=== PATIENT | male | born 1975 | race Caucasian/White ===

== ENCOUNTER 2023-04-27 19:40 | Inpatient (IN) | payer MEDICARE, OTHER ==
[~2023-04-27] VITALS: Ht 180.3 cm; Wt 99.8 kg
[2023-04-27 22:42] VITALS: BP 136/89; TEMP 100.6; O2SAT 95
[2023-04-28] VITALS: BP 138/89; TEMP 100.6; O2SAT 95
[2023-04-28] MEDS ORDERED: TEMAZEPAM 15 MG CAPSULE PO PRN
[2023-04-28] MEDS ORDERED: ACETAMINOPHEN 325 MG TABLET PO PRN
[2023-04-28] MEDS ORDERED: ONDANSETRON HCL/PF 4 MG/2 ML VIAL IV PRN
[2023-04-28] MEDS: HYDROCODONE/APAP 5/325MG TABLET PO PRN ×3 (00:05→11:15)
[2023-04-28 04:00] VITALS: BP 119/75; TEMP 99; O2SAT 97
[2023-04-28 06:01] LABS: BASOPHILS % (AUTO) 0.5 % (0.0-2.0); EOSINOPHILS # (AUTO) 0.1 K/uL (0.0-0.7); EOSINOPHILS % (AUTO) 2.1 % (0.0-6.0); HEMATOCRIT 40 % (39-51); HEMOGLOBIN 13.3 g/dL (13.5-17.5); LYMPHOCYTES # (AUTO) 1.1 K/uL (0.8-4.8); LYMPHOCYTES % (AUTO) 24.6 % (20.0-44.0); MEAN CORPUSCULAR HEMOGLOBIN 28 PG (26.0-33.0); MEAN CORPUSCULAR HGB CONC 33 g/dl (31.0-36.0); MEAN CORPUSCULAR VOLUME 84 fL (80-96); MONOCYTES # (AUTO) 0.6 K/uL (0.1-1.30); MONOCYTES % (AUTO) 12.7 % (2.0-12.0); NEUTROPHILS # (AUTO) 2.7 K/uL (1.8-8.9); NEUTROPHILS % (AUTO) 60.1 % (43.0-81.0); PLATELET COUNT (AUTO) 143 K/uL (150-450); RED BLOOD CELL COUNT(AUTO) 4.77 MIL/uL (4.5-6.0); RED CELL DISTRIBUTION WIDTH 13.9 % (11.5-15.0); WHITE BLOOD COUNT (AUTO) 4.4 K/uL (4.3-11.0)
[2023-04-28 06:27] LABS: BILIRUBIN,TOTAL 0.5 mg/dL (0.2-1.0); CALCIUM, SERUM 8.3 mg/dL (8.5-10.1); CREATININE 1.2 mg/dL (0.6-1.3); TOTAL PROTEIN, SERUM 6.7 g/dL (6.4-8.2)
[2023-04-28 08:00] VITALS: BP 123/70; TEMP 98.3; O2SAT 97
[2023-04-28] MEDS ORDERED: AZITHROMYCIN 500 MG in IV D5W 250 ML IV SCH (09:00)
[2023-04-28] MEDS: CEFTRIAXONE 1 G in IV D5W 50 ML IV SCH (09:22)
[2023-04-28] MEDS: AZITHROMYCIN 250 MG TABLET PO SCH (09:23)
[2023-04-28] MEDS ORDERED: IV NS 0.9% 250 ML IV PRN (10:00)
[2023-04-28 12:00] VITALS: BP 146/92; TEMP 98.3; O2SAT 96
[2023-04-28] MEDS: ENOXAPARIN SODIUM 40 MG/0.4 ML DISP.SYRIN SQ SCH (14:34)
[2023-04-28 16:00] VITALS: BP 129/82; TEMP 98.1; O2SAT 97
[2023-04-28] MEDS: IBUPROFEN 400 MG TABLET PO PRN (19:22)
[2023-04-28 20:00] VITALS: BP 134/82; TEMP 99.3; O2SAT 97
[2023-04-28] MEDS ORDERED: GUAIFENESIN 300 MG/15 ML UDC PO PRN (21:30)
[2023-04-29] VITALS: BP 127/77; TEMP 97.9; O2SAT 96
[2023-04-29 04:00] VITALS: BP 122/74; TEMP 98.6; O2SAT 96
[2023-04-29 07:02] LABS: BASOPHILS % (AUTO) 0.7 % (0.0-2.0); EOSINOPHILS # (AUTO) 0.1 K/uL (0.0-0.7); HEMATOCRIT 44 % (39-51); HEMOGLOBIN 14.5 g/dL (13.5-17.5); LYMPHOCYTES # (AUTO) 1.3 K/uL (0.8-4.8); LYMPHOCYTES % (AUTO) 27.7 % (20.0-44.0); MEAN CORPUSCULAR HEMOGLOBIN 28 PG (26.0-33.0); MEAN CORPUSCULAR HGB CONC 33 g/dl (31.0-36.0); MEAN CORPUSCULAR VOLUME 84 fL (80-96); MONOCYTES # (AUTO) 0.7 K/uL (0.1-1.30); MONOCYTES % (AUTO) 14.8 % (2.0-12.0); NEUTROPHILS # (AUTO) 2.6 K/uL (1.8-8.9); NEUTROPHILS % (AUTO) 53.8 % (43.0-81.0); PLATELET COUNT (AUTO) 155 K/uL (150-450); RED CELL DISTRIBUTION WIDTH 13.7 % (11.5-15.0); WHITE BLOOD COUNT (AUTO) 4.8 K/uL (4.3-11.0)
[2023-04-29 07:32] LABS: CALCIUM, SERUM 8.4 mg/dL (8.5-10.1); CREATININE 1.1 mg/dL (0.6-1.3); MAGNESIUM 2.1 mg/dL (1.8-2.4); PHOSPHORUS 4.5 mg/dL (2.5-4.9)
[2023-04-29] MEDS: IBUPROFEN 400 MG TABLET PO PRN (07:54)
[2023-04-29 08:00] VITALS: BP 143/84; TEMP 99; O2SAT 96
[2023-04-29] MEDS: CEFTRIAXONE 1 G in IV D5W 50 ML IV SCH (09:01)
[2023-04-29] MEDS: AZITHROMYCIN 250 MG TABLET PO SCH (09:01)
[2023-04-29] MEDS: ENOXAPARIN SODIUM 40 MG/0.4 ML DISP.SYRIN SQ SCH (09:02)
[2023-04-29 12:00] VITALS: BP 158/87; TEMP 98.4; O2SAT 98
[2023-04-29 16:00] VITALS: BP 138/88; TEMP 97.9; O2SAT 98
[2023-04-29 20:00] VITALS: BP 134/84; TEMP 99.1; O2SAT 98
[2023-04-30] VITALS: BP 124/83; TEMP 99.5; O2SAT 98
[2023-04-30] MEDS: IBUPROFEN 400 MG TABLET PO PRN (01:39)
[2023-04-30 04:00] VITALS: BP 118/78; TEMP 98.2; O2SAT 98
[2023-04-30 08:00] VITALS: BP 141/90; TEMP 98.6; O2SAT 98
[2023-04-30] MEDS: ENOXAPARIN SODIUM 40 MG/0.4 ML DISP.SYRIN SQ SCH (09:52)
[2023-04-30] MEDS: AZITHROMYCIN 250 MG TABLET PO SCH (09:53)
[2023-04-30] MEDS: CEFTRIAXONE 1 G in IV D5W 50 ML IV SCH (09:53)
[2023-04-30 10:00] VITALS: BP 141/90; TEMP 98.6; O2SAT 98
[2023-04-30] MEDS ORDERED: GUAI100S11 PO (11:56)
[2023-04-30] MEDS ORDERED: AZIT250T PO (11:56)
[2023-04-30 12:00] VITALS: BP 141/90; TEMP 98.6; O2SAT 98
== END 2023-04-30 13:45 | disposition home or self-care (01) | DRG 195 ==
LOC: TELE1 19:40 → MEDSG1 04-29 16:36
PROVIDERS: ADMIT Nurse Practitioner Acute Care; ATTEND Nurse Practitioner Acute Care
DX: J15.9 Unspecified bacterial pneumonia (principal); E66.9 Obesity, unspecified; Z87.828 Personal history of other (healed) physical injury and trauma; Z68.30 Body mass index [BMI] 30.0-30.9, adult; F17.200 Nicotine dependence, unspecified, uncomplicated; G47.33 Obstructive sleep apnea (adult) (pediatric); G89.29 Other chronic pain; Z98.890 Other specified postprocedural states
CPT/HCPCS: 36415; 70450-TC; 71045-TC; 80048-TC; 80053-TC; 83735-TC; 84100-TC; 85025-TC; 87081-TC; A4223; G0378; J0456; J0696; J1650; J2405; J7050; J7060

== ENCOUNTER 2024-01-18 12:46 | Inpatient (IN) | payer MEDICARE, OTHER ==
[~2024-01-18] VITALS: Ht 181.6 cm; Wt 100.2 kg
[~2024-01-18 12:46] MED LIST: AZIT250T PO; GUAI100S11 PO
[2024-01-18 13:40] LABS: BASOPHILS % (AUTO) 0.3 % (0.0-2.0); EOSINOPHILS # (AUTO) 0.1 K/uL (0.0-0.7); EOSINOPHILS % (AUTO) 0.8 % (0.0-6.0); HEMATOCRIT 43 % (39-51); HEMOGLOBIN 14.8 g/dL (13.5-17.5); LYMPHOCYTES # (AUTO) 1.4 K/uL (0.8-4.8); LYMPHOCYTES % (AUTO) 14.2 % (20.0-44.0); MEAN CORPUSCULAR HEMOGLOBIN 29 PG (26.0-33.0); MEAN CORPUSCULAR HGB CONC 34 g/dl (31.0-36.0); MEAN CORPUSCULAR VOLUME 85 fL (80-96); MONOCYTES # (AUTO) 0.9 K/uL (0.1-1.30); MONOCYTES % (AUTO) 9.3 % (2.0-12.0); NEUTROPHILS # (AUTO) 7.3 K/uL (1.8-8.9); NEUTROPHILS % (AUTO) 75.4 % (43.0-81.0); PLATELET COUNT (AUTO) 136 K/uL (150-450); RED BLOOD CELL COUNT(AUTO) 5.12 MIL/uL (4.5-6.0); RED CELL DISTRIBUTION WIDTH 13.8 % (11.5-15.0); WHITE BLOOD COUNT (AUTO) 9.7 K/uL (4.3-11.0)
[2024-01-18 13:50] LABS: CALCIUM, SERUM 9.3 mg/dL (8.5-10.1); CARBON DIOXIDE 27 mmol/L (21-32); CHLORIDE 99 mmol/L (98-107); CREATININE 1.1 mg/dL (0.6-1.3); GLUCOSE 112 mg/dL (74-106); SODIUM SERUM 138 mmol/L (136-145); UREA NITROGEN, BLOOD 11 mg/dL (7-18)
[2024-01-18 14:00] LABS: NT-PRO BNP 12 pg/mL (0-125)
[2024-01-18] MEDS ORDERED: ACET-2030 PO (14:32)
[2024-01-18] MEDS ORDERED: ENOXAPARIN SODIUM 100 MG/ML DISP.SYRIN SQ ONE (14:49)
[2024-01-18] MEDS: ENOXAPARIN SODIUM 100 MG/ML DISP.SYRIN SQ ONE (14:50)
[2024-01-18] MEDS: ACETAMINOPHEN 325 MG TABLET PO STA (15:46)
[2024-01-18] MEDS ORDERED: ACETAMINOPHEN ES 500 MG TABLET ONE (15:46)
[2024-01-18] MEDS ORDERED: Z GUARD REMEDY 4 OZ OINT TP PRN (16:00)
[2024-01-18] MEDS ORDERED: MAGNESIUM HYDROXIDE 30 ML UDC PO PRN (16:00)
[2024-01-18 18:00] VITALS: BP 135/91; TEMP 99.5; O2SAT 99
[2024-01-18] MEDS: HYDROCODONE/APAP 5/325MG TABLET PO PRN (19:04)
[2024-01-18] MEDS ORDERED: ACETAMINOPHEN ES 500 MG TABLET PO PRN (19:30)
[2024-01-18 20:00] VITALS: BP 124/86; TEMP 99.5; O2SAT 98
[2024-01-19] VITALS: BP 125/82; TEMP 98.3; O2SAT 98
[2024-01-19 00:20] LABS: INR 1.14 (0.91-1.10)
[2024-01-19] MEDS: ENOXAPARIN SODIUM 100 MG/ML DISP.SYRIN SQ SCH (03:21)
[2024-01-19 04:00] VITALS: BP 122/72; TEMP 98.3; O2SAT 98
[2024-01-19] MEDS: ACETAMINOPHEN 325 MG TABLET PO PRN (05:07)
[2024-01-19 07:26] LABS: BASOPHILS % (AUTO) 0.1 % (0.0-2.0); EOSINOPHILS % (AUTO) 0.1 % (0.0-6.0); HEMATOCRIT 42 % (39-51); HEMOGLOBIN 14.1 g/dL (13.5-17.5); MEAN CORPUSCULAR HEMOGLOBIN 29 PG (26.0-33.0); MEAN CORPUSCULAR HGB CONC 34 g/dl (31.0-36.0); MEAN CORPUSCULAR VOLUME 85 fL (80-96); MONOCYTES # (AUTO) 1.2 K/uL (0.1-1.30); MONOCYTES % (AUTO) 9.9 % (2.0-12.0); NEUTROPHILS # (AUTO) 9.5 K/uL (1.8-8.9); NEUTROPHILS % (AUTO) 80.9 % (43.0-81.0); PLATELET COUNT (AUTO) 132 K/uL (150-450); RED CELL DISTRIBUTION WIDTH 13.6 % (11.5-15.0); WHITE BLOOD COUNT (AUTO) 11.7 K/uL (4.3-11.0)
[2024-01-19] MEDS: PANTOPRAZOLE 40 MG TABLET.DR PO SCH (07:35)
[2024-01-19 07:52] LABS: CALCIUM, SERUM 9.2 mg/dL (8.5-10.1); CREATININE 1.1 mg/dL (0.6-1.3); PHOSPHORUS 3.4 mg/dL (2.5-4.9); POTASSIUM 4.7 mmol/L (3.5-5.1)
[2024-01-19 08:00] VITALS: BP 131/85; TEMP 98.8; O2SAT 98
[2024-01-19 12:00] VITALS: BP 135/86; TEMP 100; O2SAT 100
[2024-01-19 14:19] LABS: INR 1.2 (0.91-1.10); PROTHROMBIN TIME 12.6 SECS (9.2-11.1)
[2024-01-19] MEDS: ONDANSETRON HCL/PF 4 MG/2 ML VIAL IVP PRN (14:25)
[2024-01-19] MEDS: HEPARIN INFUSION/D5W 500 ML IV PRN (14:56)
[2024-01-19 16:00] VITALS: BP 132/92; TEMP 99.7; O2SAT 97
[2024-01-19 20:00] VITALS: BP 116/72; TEMP 99.3; O2SAT 97
[2024-01-19] MEDS ORDERED: CEFEPIME 1 GM VIAL ONE (21:47)
[2024-01-19 22:22] LABS: APPEARANCE,URINE CLEAR (CLEAR); BILIRUBIN,URINE NEGATIVE (NEGATIVE); BLOOD, URINE TRACE-INTA Ery/uL (NEGATIVE); COLOR,URINE YELLOW (YELLOW); KETONES,URINE NEGATIVE (NEGATIVE); LEUKOCYTE ESTERASE ,URINE NEGATIVE (NEGATIVE); NITRITE, URINE NEGATIVE (NEGATIVE); PROTEIN,URINE NEGATIVE (NEGATIVE); UGLUCOSE NEGATIVE (NEGATIVE)
[2024-01-19] MEDS: CEFEPIME 1 GM VIAL IV SCH (22:23)
[2024-01-19 22:31] LABS: ADD URINE CULTURE NO; BACTERIA,URINE Few /HPF (None Seen); SQUAMOUS EPITHELIAL CELL,UR Few /HPF (None Seen)
[2024-01-19] MEDS: VANCOMYCIN 1 GM /D5W 250 ML PB IV ONE (23:15)
[2024-01-19] MEDS: VANCOMYCIN 1 GM in IV D5W 250ml IV SCH (23:17)
[2024-01-20] VITALS (7 sets, daily range): BP systolic 124–132; BP diastolic 73–83; TEMP 97.6–100.6; O2SAT 91–98
[2024-01-20] MEDS: CEFEPIME 1 GM in IV D5W 50 ML IV SCH (05:17)
[2024-01-20 06:45] LABS: BASOPHILS % (AUTO) 0.2 % (0.0-2.0); EOSINOPHILS % (AUTO) 0.2 % (0.0-6.0); HEMATOCRIT 39 % (39-51); HEMOGLOBIN 13.6 g/dL (13.5-17.5); LYMPHOCYTES # (AUTO) 1.4 K/uL (0.8-4.8); MEAN CORPUSCULAR HEMOGLOBIN 29 PG (26.0-33.0); MEAN CORPUSCULAR HGB CONC 35 g/dl (31.0-36.0); MEAN CORPUSCULAR VOLUME 85 fL (80-96); MONOCYTES # (AUTO) 1.2 K/uL (0.1-1.30); MONOCYTES % (AUTO) 10.4 % (2.0-12.0); NEUTROPHILS # (AUTO) 9.1 K/uL (1.8-8.9); NEUTROPHILS % (AUTO) 77.2 % (43.0-81.0); PLATELET COUNT (AUTO) 131 K/uL (150-450); RED BLOOD CELL COUNT(AUTO) 4.63 MIL/uL (4.5-6.0); RED CELL DISTRIBUTION WIDTH 13.6 % (11.5-15.0); WHITE BLOOD COUNT (AUTO) 11.7 K/uL (4.3-11.0)
[2024-01-20 07:02] LABS: CALCIUM, SERUM 8.4 mg/dL (8.5-10.1); MAGNESIUM 1.8 mg/dL (1.8-2.4); POTASSIUM 4.3 mmol/L (3.5-5.1)
[2024-01-20] MEDS: VANCOMYCIN HCL 1.25 GM in IV D5W 250 ML IV SCH (11:06)
[2024-01-20] MEDS: CEFEPIME 2 GM in IV D5W 100 ML IV SCH (13:03)
[2024-01-20] MEDS: HEPARIN SODIUM, PORCINE 5000 UNITS/1 ML VIAL IV ONE (21:58)
[2024-01-20] MEDS ORDERED: CEFEPIME 1 GM in IV D5W 50 ML IV SCH (22:31)
[2024-01-21] VITALS: BP 121/78; TEMP 97.3; O2SAT 97
[2024-01-21 04:00] VITALS: BP 114/60; TEMP 100; O2SAT 96
[2024-01-21 04:07] LABS: CALCIUM, SERUM 8.8 mg/dL (8.5-10.1); CREATININE 1.1 mg/dL (0.6-1.3); POTASSIUM 3.8 mmol/L (3.5-5.1)
[2024-01-21 04:26] LABS: C-REACTIVE PROTEIN > 25.00 mg/dL (0.0-0.30)
[2024-01-21 04:53] LABS: RHEUMATOID FACTOR SCREEN NEGATIVE (NEGATIVE)
[2024-01-21 08:26] VITALS: BP 106/86; TEMP 98.6; O2SAT 97
[2024-01-21] MEDS: MORPHINE SULFATE INJ 2 MG/ML DISP.SYRIN IV ONE (11:22)
[2024-01-21 15:57] LABS: HIV-1 p24 ANTIGEN NON REACTIVE (NONREACTIVE); HIV-1/2 ANTIBODY NON REACTIVE (NONREACTIVE)
[2024-01-21 16:21] VITALS: BP 124/74; TEMP 97.6; O2SAT 97
[2024-01-21 17:08] LABS: BASOPHILS % (AUTO) 0.2 % (0.0-2.0); EOSINOPHILS # (AUTO) 0.1 K/uL (0.0-0.7); EOSINOPHILS % (AUTO) 0.7 % (0.0-6.0); HEMATOCRIT 37 % (39-51); HEMOGLOBIN 12.8 g/dL (13.5-17.5); LYMPHOCYTES # (AUTO) 1.3 K/uL (0.8-4.8); LYMPHOCYTES % (AUTO) 12.5 % (20.0-44.0); MEAN CORPUSCULAR HEMOGLOBIN 29 PG (26.0-33.0); MEAN CORPUSCULAR HGB CONC 34 g/dl (31.0-36.0); MEAN CORPUSCULAR VOLUME 85 fL (80-96); MONOCYTES # (AUTO) 1.3 K/uL (0.1-1.30); MONOCYTES % (AUTO) 12.5 % (2.0-12.0); NEUTROPHILS # (AUTO) 7.7 K/uL (1.8-8.9); NEUTROPHILS % (AUTO) 74.1 % (43.0-81.0); PLATELET COUNT (AUTO) 163 K/uL (150-450); RED BLOOD CELL COUNT(AUTO) 4.37 MIL/uL (4.5-6.0); RED CELL DISTRIBUTION WIDTH 13.3 % (11.5-15.0); WHITE BLOOD COUNT (AUTO) 10.4 K/uL (4.3-11.0)
[2024-01-21 20:00] VITALS: BP 128/90; TEMP 100.2; O2SAT 97
[2024-01-21] MEDS: HEPARIN SODIUM, PORCINE 5000 UNITS/1 ML VIAL IV ONE (22:30)
[2024-01-22] VITALS (7 sets, daily range): BP systolic 114–139; BP diastolic 77–89; TEMP 98.6–100; O2SAT 95–99
[2024-01-22] MEDS ORDERED: IV NS 0.9% 1,000 ML BAG IV PRN ×2 (00:30)
[2024-01-22] MEDS: IV NS 0.9% 1,000 ML IV PRN (00:37)
[2024-01-22 04:04] LABS: BASOPHILS % (AUTO) 0.3 % (0.0-2.0); EOSINOPHILS # (AUTO) 0.1 K/uL (0.0-0.7); EOSINOPHILS % (AUTO) 0.7 % (0.0-6.0); HEMATOCRIT 35 % (39-51); HEMOGLOBIN 12.4 g/dL (13.5-17.5); LYMPHOCYTES # (AUTO) 1.1 K/uL (0.8-4.8); LYMPHOCYTES % (AUTO) 11.6 % (20.0-44.0); MEAN CORPUSCULAR HEMOGLOBIN 30 PG (26.0-33.0); MEAN CORPUSCULAR HGB CONC 35 g/dl (31.0-36.0); MEAN CORPUSCULAR VOLUME 85 fL (80-96); MONOCYTES % (AUTO) 11.2 % (2.0-12.0); NEUTROPHILS % (AUTO) 76.2 % (43.0-81.0); PLATELET COUNT (AUTO) 161 K/uL (150-450); RED BLOOD CELL COUNT(AUTO) 4.14 MIL/uL (4.5-6.0); RED CELL DISTRIBUTION WIDTH 13.1 % (11.5-15.0); WHITE BLOOD COUNT (AUTO) 9.2 K/uL (4.3-11.0)
[2024-01-22 04:15] LABS: CALCIUM, SERUM 8.8 mg/dL (8.5-10.1); CREATININE 0.9 mg/dL (0.6-1.3); PHOSPHORUS 3.3 mg/dL (2.5-4.9)
[2024-01-22 07:10] LABS: FOLIC ACID 3.9 ng/mL (>3.0)
[2024-01-22 08:07] LABS: FREE KAPPA LT CHAINS SERUM 22.3 mg/L (3.3-19.4); FREE LAMBDA LT CHAIN SERUM 17.4 mg/L (5.7-26.3); KAPPA/LAMBDA RATIO SERUM 1.28 (0.26-1.65)
[2024-01-22 09:09] LABS: IMMUNOGLOBULIN A, SERUM 287 mg/dL (90-386); IMMUNOGLOBULIN G, SERUM 1124 mg/dL (603-1613); IMMUNOGLOBULIN M, SERUM 98 mg/dL (20-172)
[2024-01-22] MEDS: VANCOMYCIN 750 MG in IV D5W 250 ML IV SCH (10:41)
[2024-01-22 11:12] LABS: *ANA ANTI-CENTROMERE B AB <0.2 AI (0.0-0.9); *ANA ANTI-DNA(DS) AB, QN 5 IU/mL (0-9); *ANA ANTI-JO-1 <0.2 AI (0.0-0.9); *ANA ANTICHROMATIN ANTIBODY <0.2 AI (0.0-0.9); *ANA RNP ANTIBODIES <0.2 AI (0.0-0.9); *ANA SJOGREN'S ANTI-SS-A <0.2 AI (0.0-0.9); *ANA SJOGREN'S ANTI-SS-B <0.2 AI (0.0-0.9); *ANAANTI-SCLERODERMA-70 AB <0.2 AI (0.0-0.9); *ANASMITH AB <0.2 AI (0.0-0.9); HEPATITIS B SURFACE AB Non Reactive (.)
[2024-01-22] MEDS: HEPARIN SODIUM, PORCINE 5000 UNITS/1 ML VIAL IV ONE (11:29)
[2024-01-22] MEDS ORDERED: HEPARIN SODIUM,PORCINE/PF 50 UNIT/5 ML DISP.SYRIN IV ONE (11:30)
[2024-01-22 12:07] LABS: HOMOCYSTEINE, PLASMA 4.8 umol/L (0.0-14.5)
[2024-01-22 16:06] LABS: *SPE A/G RATIO 0.9 (0.7-1.7); *SPE ALBUMIN 2.8 g/dL (2.9-4.4); *SPE ALPHA-1-GLOBULIN 0.4 g/dL (0.0-0.4); *SPE ALPHA-2-GLOBULIN 0.8 g/dL (0.4-1.0); *SPE BETA GLOBULIN 0.8 g/dL (0.7-1.3); *SPE GLOBULIN, TOTAL 3.2 g/dL (2.2-3.9); *SPE M-SPIKE Not Observed g/dL (Not Observed); *SPEGAMMA GLOBULIN 1.1 g/dL (0.4-1.8)
[2024-01-22] MEDS: GUAIFENESIN/D-METHORPHAN HB 5 ML UDC PO PRN (16:28)
[2024-01-22] MEDS: VANCOMYCIN HCL 1.25 GM in IV D5W 250 ML IV SCH (16:54)
[2024-01-22 18:09] LABS: INR 1.22 (0.91-1.10); PARTIAL THROMBOPLASTIN TIME 53.9 SEC (24.3-34.3); PROTHROMBIN TIME 12.8 SECS (9.2-11.1)
[2024-01-22] MEDS: AZITHROMYCIN 500 MG in IV D5W 250 ML IV SCH (21:00)
[2024-01-22] MEDS ORDERED: AZITHROMYCIN 500 MG VIAL ONE (22:24)
[2024-01-22] MEDS: ZOLPIDEM TARTRATE 5 MG TABLET PO PRN (23:43)
[2024-01-23] VITALS (7 sets, daily range): BP systolic 122–135; BP diastolic 69–89; TEMP 98.2–100; O2SAT 95–99
[2024-01-23] MEDS ORDERED: HEPARIN INFUSION/D5W 500 ML IV ONE (01:41)
[2024-01-23 07:40] LABS: BASOPHILS % (AUTO) 0.4 % (0.0-2.0); EOSINOPHILS # (AUTO) 0.2 K/uL (0.0-0.7); EOSINOPHILS % (AUTO) 2.3 % (0.0-6.0); HEMATOCRIT 36 % (39-51); HEMOGLOBIN 12.1 g/dL (13.5-17.5); LYMPHOCYTES # (AUTO) 1.2 K/uL (0.8-4.8); LYMPHOCYTES % (AUTO) 14.1 % (20.0-44.0); MEAN CORPUSCULAR HEMOGLOBIN 29 PG (26.0-33.0); MEAN CORPUSCULAR HGB CONC 34 g/dl (31.0-36.0); MEAN CORPUSCULAR VOLUME 85 fL (80-96); MONOCYTES % (AUTO) 12.2 % (2.0-12.0); NEUTROPHILS # (AUTO) 5.9 K/uL (1.8-8.9); PLATELET COUNT (AUTO) 188 K/uL (150-450); RED BLOOD CELL COUNT(AUTO) 4.23 MIL/uL (4.5-6.0); RED CELL DISTRIBUTION WIDTH 13.5 % (11.5-15.0); WHITE BLOOD COUNT (AUTO) 8.3 K/uL (4.3-11.0)
[2024-01-23 08:04] LABS: INR 1.18 (0.91-1.10); PARTIAL THROMBOPLASTIN TIME 65.6 SEC (24.3-34.3); PROTHROMBIN TIME 12.4 SECS (9.2-11.1)
[2024-01-23 10:46] LABS: CALCIUM, SERUM 8.8 mg/dL (8.5-10.1); POTASSIUM 4.8 mmol/L (3.5-5.1)
[2024-01-23 17:11] LABS: *CARD ANTI-CARDIOLIPIN AB IgG <9 GPL U/mL (0-14); *CARD ANTI-CARDIOLIPIN AB IgM <9 MPL U/mL (0-12)
[2024-01-24] VITALS: BP 121/81; TEMP 99; O2SAT 97
[2024-01-24 04:00] VITALS: BP 121/81; TEMP 99; O2SAT 97
[2024-01-24] MEDS: BISACODYL SUPP (10 MG) 10 MG/SUPP.RECT SUPP.RECT RC PRN (06:14)
[2024-01-24 07:28] LABS: INR 1.19 (0.91-1.10); PROTHROMBIN TIME 12.5 SECS (9.2-11.1)
[2024-01-24 07:40] LABS: BASOPHILS % (AUTO) 0.4 % (0.0-2.0); EOSINOPHILS # (AUTO) 0.3 K/uL (0.0-0.7); EOSINOPHILS % (AUTO) 3.4 % (0.0-6.0); HEMATOCRIT 35 % (39-51); HEMOGLOBIN 11.9 g/dL (13.5-17.5); LYMPHOCYTES % (AUTO) 12.7 % (20.0-44.0); MEAN CORPUSCULAR HEMOGLOBIN 29 PG (26.0-33.0); MEAN CORPUSCULAR HGB CONC 34 g/dl (31.0-36.0); MEAN CORPUSCULAR VOLUME 85 fL (80-96); MONOCYTES # (AUTO) 0.9 K/uL (0.1-1.30); MONOCYTES % (AUTO) 11.8 % (2.0-12.0); NEUTROPHILS # (AUTO) 5.7 K/uL (1.8-8.9); NEUTROPHILS % (AUTO) 71.7 % (43.0-81.0); PLATELET COUNT (AUTO) 211 K/uL (150-450); RED BLOOD CELL COUNT(AUTO) 4.14 MIL/uL (4.5-6.0); RED CELL DISTRIBUTION WIDTH 13.2 % (11.5-15.0)
[2024-01-24 07:48] LABS: CALCIUM, SERUM 8.3 mg/dL (8.5-10.1); POTASSIUM 4.1 mmol/L (3.5-5.1)
[2024-01-24 08:00] VITALS: BP 132/76; TEMP 98.4; O2SAT 94
[2024-01-24] MEDS ORDERED: BARIUM SULFATE 98% 135 ML SUSP.RECON PO ONE (11:52)
[2024-01-24 12:00] VITALS: BP 151/81; TEMP 99.7; O2SAT 96
[2024-01-24] MEDS: ALPRAZOLAM 0.25 MG TABLET PO PRN (15:03)
[2024-01-24 16:00] VITALS: BP 131/85; TEMP 100.8; O2SAT 98
[2024-01-24 20:00] VITALS: BP 131/85; TEMP 98.8; O2SAT 98
[2024-01-25] VITALS: BP 128/85; TEMP 98.4; O2SAT 97
[2024-01-25 04:00] VITALS: BP 118/82; TEMP 98.1; O2SAT 98
[2024-01-25 07:10] LABS: *ANTITHROMBIN III AG 62 % (72-124); *DILUTE PROTHROMBIN TIME (dPT) 55.4 sec (0.0-47.6); *PTT-LA MIX 105.4 sec (0.0-40.5); *THROMBIN TIME 26.6 sec (0.0-23.0); *dRVVT 51.1 sec (0.0-47.0); ANTITHROMBIN III ACTIVITY 65 % (75-135); PROTEIN C ACTIVITY 72 % (73-180)
[2024-01-25 07:31] LABS: BASOPHILS % (AUTO) 0.5 % (0.0-2.0); EOSINOPHILS # (AUTO) 0.3 K/uL (0.0-0.7); EOSINOPHILS % (AUTO) 3.1 % (0.0-6.0); HEMATOCRIT 36 % (39-51); HEMOGLOBIN 12.4 g/dL (13.5-17.5); LYMPHOCYTES # (AUTO) 1.2 K/uL (0.8-4.8); LYMPHOCYTES % (AUTO) 13.8 % (20.0-44.0); MEAN CORPUSCULAR HEMOGLOBIN 29 PG (26.0-33.0); MEAN CORPUSCULAR HGB CONC 34 g/dl (31.0-36.0); MEAN CORPUSCULAR VOLUME 84 fL (80-96); MONOCYTES # (AUTO) 0.9 K/uL (0.1-1.30); MONOCYTES % (AUTO) 11.2 % (2.0-12.0); NEUTROPHILS % (AUTO) 71.4 % (43.0-81.0); PLATELET COUNT (AUTO) 241 K/uL (150-450); RED BLOOD CELL COUNT(AUTO) 4.32 MIL/uL (4.5-6.0); RED CELL DISTRIBUTION WIDTH 13.2 % (11.5-15.0); WHITE BLOOD COUNT (AUTO) 8.4 K/uL (4.3-11.0)
[2024-01-25 07:47] LABS: INR 1.2 (0.91-1.10); PARTIAL THROMBOPLASTIN TIME 66.8 SEC (24.3-34.3); PROTHROMBIN TIME 12.6 SECS (9.2-11.1)
[2024-01-25 07:52] LABS: CALCIUM, SERUM 9.1 mg/dL (8.5-10.1); CREATININE 1.1 mg/dL (0.6-1.3); POTASSIUM 4.9 mmol/L (3.5-5.1)
[2024-01-25 08:00] VITALS: BP 112/82; TEMP 98.2; O2SAT 96
[2024-01-25 12:00] VITALS: BP 148/95; TEMP 99.3; O2SAT 95
[2024-01-25 16:00] VITALS: BP 123/86; TEMP 98.8; O2SAT 95
[2024-01-25 20:00] VITALS: BP 123/86; TEMP 100; O2SAT 94
[2024-01-25] MEDS: MAG HYDROX/AL HYDROX/SIMETH 30 ML UDC PO PRN (20:48)
[2024-01-26] VITALS (7 sets, daily range): BP systolic 121–133; BP diastolic 75–90; TEMP 97.9–99; O2SAT 96–98
[2024-01-26 07:45] LABS: BASOPHILS # (AUTO) 0.1 K/uL (0.0-0.2); BASOPHILS % (AUTO) 0.7 % (0.0-2.0); EOSINOPHILS # (AUTO) 0.2 K/uL (0.0-0.7); HEMATOCRIT 36 % (39-51); HEMOGLOBIN 12.2 g/dL (13.5-17.5); LYMPHOCYTES # (AUTO) 1.4 K/uL (0.8-4.8); LYMPHOCYTES % (AUTO) 17.8 % (20.0-44.0); MEAN CORPUSCULAR HEMOGLOBIN 28 PG (26.0-33.0); MEAN CORPUSCULAR HGB CONC 34 g/dl (31.0-36.0); MEAN CORPUSCULAR VOLUME 84 fL (80-96); MONOCYTES # (AUTO) 0.9 K/uL (0.1-1.30); MONOCYTES % (AUTO) 11.2 % (2.0-12.0); NEUTROPHILS # (AUTO) 5.4 K/uL (1.8-8.9); NEUTROPHILS % (AUTO) 67.3 % (43.0-81.0); PLATELET COUNT (AUTO) 265 K/uL (150-450); RED CELL DISTRIBUTION WIDTH 13.2 % (11.5-15.0); WHITE BLOOD COUNT (AUTO) 8.1 K/uL (4.3-11.0)
[2024-01-26 08:07] LABS: CALCIUM, SERUM 8.2 mg/dL (8.5-10.1); CREATININE 0.9 mg/dL (0.6-1.3); POTASSIUM 3.9 mmol/L (3.5-5.1)
[2024-01-26] MEDS: CEFTRIAXONE 1 G in IV D5W 50 ML IV SCH (13:57)
[2024-01-26] MEDS: APIXABAN 5 MG TABLET PO SCH (20:36)
[2024-01-27 04:11] VITALS: BP 116/87; TEMP 98; O2SAT 96
[2024-01-27 07:34] LABS: BASOPHILS % (AUTO) 0.4 % (0.0-2.0); EOSINOPHILS # (AUTO) 0.2 K/uL (0.0-0.7); EOSINOPHILS % (AUTO) 2.5 % (0.0-6.0); HEMATOCRIT 37 % (39-51); HEMOGLOBIN 12.2 g/dL (13.5-17.5); LYMPHOCYTES # (AUTO) 1.2 K/uL (0.8-4.8); LYMPHOCYTES % (AUTO) 13.4 % (20.0-44.0); MEAN CORPUSCULAR HEMOGLOBIN 28 PG (26.0-33.0); MEAN CORPUSCULAR HGB CONC 34 g/dl (31.0-36.0); MEAN CORPUSCULAR VOLUME 85 fL (80-96); MONOCYTES # (AUTO) 0.9 K/uL (0.1-1.30); MONOCYTES % (AUTO) 9.8 % (2.0-12.0); NEUTROPHILS # (AUTO) 6.8 K/uL (1.8-8.9); NEUTROPHILS % (AUTO) 73.9 % (43.0-81.0); PLATELET COUNT (AUTO) 314 K/uL (150-450); RED CELL DISTRIBUTION WIDTH 13.2 % (11.5-15.0); WHITE BLOOD COUNT (AUTO) 9.3 K/uL (4.3-11.0)
[2024-01-27 07:56] LABS: CALCIUM, SERUM 8.3 mg/dL (8.5-10.1); CREATININE 0.9 mg/dL (0.6-1.3); POTASSIUM 4.3 mmol/L (3.5-5.1)
[2024-01-27] MEDS ORDERED: APIX5TAB PO (11:00)
[2024-01-27] MEDS ORDERED: PANT40TA49 PO (11:00)
[2024-01-27] MEDS ORDERED: DOXY-226 PO (11:00)
[2024-01-27 12:00] VITALS: BP 125/80; TEMP 98.7; O2SAT 96
== END 2024-01-27 17:37 | disposition home or self-care (01) | DRG 175 ==
LOC: ER 12:52 → TELE1 15:38 → MEDSG1 01-26 16:58
PROVIDERS: ADMIT Student in an Organized Health Care Education/Training Program; ATTEND Nurse Practitioner Acute Care
DX: I26.99 Other pulmonary embolism without acute cor pulmonale (principal); J15.9 Unspecified bacterial pneumonia; D68.59 Other primary thrombophilia; J90 Pleural effusion, not elsewhere classified; D69.6 Thrombocytopenia, unspecified; Z86.16 Personal history of COVID-19; Z86.711 Personal history of pulmonary embolism; Z79.01 Long term (current) use of anticoagulants; Z86.718 Personal history of other venous thrombosis and embolism; I50.9 Heart failure, unspecified
CPT/HCPCS: 36415; 71045-TC; 71250-TC; 76700-TC; 80048-TC; 80202-TC; 81001; 81240; 81241; 82607-TC; 82784; 83090; 83605-TC; 83735-TC; 83880; 84100-TC; 84155; 84165; 84443-TC; 84484-TC; 85025-TC; 85300; 85301; 85303; 85378-TC; 85610-TC; 85613; 85670; 85705; 85730-TC; 85732; 86140-TC; 86147; 86225; 86235; 86334; 86431-TC; 86706; 86803; 87040-TC; 87081-TC; 87086-TC; 87340; 87806; 87899; 93307-TC; 93970-TC; 94760-TC; 94762-TC; 94799-TC; 97116-TC; 97530-TC; A4223; G0378; J0456; J0692; J0696; J1642; J1644; J1650; J2270; J2405; J3370; J3371; J7030; J7050; J7060